=== PATIENT | male | born 1975 | race Caucasian/White ===

== ENCOUNTER 2019-01-29 12:35 | Emergency (ER) | payer SELFPAY ==
--- NOTE | 2019-01-29 13:37 | EDM.PDOC ---
Scribed by Rebecca Bailey 01/29/19 0091 for Kiel Gilmore MD ED HPI GENERAL MEDICAL PROBLEM - General Chief Complaint: Lower Extremity Injury/Pain Stated Complaint: TWISTED ANKLE Time Seen by Provider: 01/29/19 13:15 Source of Information: Reports: Patient, RN, RN Notes Reviewed History Limitations: Reports: No Limitations - History of Present Illness INITIAL COMMENTS - FREE TEXT/NARRATIVE: Patient presents to ER with complaint of right ankle injury. Patient states he was walking down some stairs around 1145 and he misstepped and rolled his ankle. Pt states that he heard it "pop" twice and said it "turned all the way around". Pt denies injury elsewhere. Patient was able to bear weight on it when standing on scale. Patient rates pain at a 5/10 to his ankle. Patient denies pain elsewhere. States he took 800mg of aleve after incident. Patient was given ice during triage. Onset: Today Duration: Constant Location: Reports: Lower Extremity, Right Quality: Reports: Ache Severity: Moderate Improves with: Reports: None Worsens with: Reports: None Associated Symptoms: Reports: No Other Symptoms Ankle Pain Score (Numeric/FACES): 5 - Related Data Allergies Allergy/AdvReac Type Severity Reaction Status Date / Time No Known Allergies Allergy Verified 01/29/19 12:53 Home Meds: Home Meds . [No Known Home Meds] 05/21/18 [History] Past Medical History - Past Health History Medical/Surgical History: Denies Medical/Surgical History Social & Family History - Family History Family Medical History: Noncontributory - Tobacco Use Smoking Status *Q: Current Every Day Smoker Years of Tobacco use: 30 Packs/Tins Daily: 1 - Caffeine Use Caffeine Use: Reports: Coffee - Recreational Drug Use Recreational Drug Use: Yes Recreational Drug Type: Reports: Marijuana/Hashish Review of Systems - Review of Systems Review Of Systems: ROS reveals no pertinent complaints other than HPI. ED EXAM, GENERAL - Physical Exam Exam: See Below Exam Limited By: No Limitations General Appearance: Alert, WD/WN, No Apparent Distress Throat/Mouth: Normal Inspection, Normal Voice Head: Atraumatic, Normocephalic Neck: Normal Inspection Respiratory/Chest: No Respiratory Distress Cardiovascular: Regular Rate, Rhythm Extremities: No Pedal Edema, Normal Capillary Refill, Leg Pain (Rt lateral ankle with soft tissue swelling, no visible deformity, faint bruising. ) Neurological: Alert, Oriented, No Motor/Sensory Deficits Psychiatric: Normal Mood Skin Exam: Warm, Dry, Intact, Normal Color Course - Vital Signs Last Recorded V/S: Last Vital Signs Temp 98 F 01/29/19 12:54 Pulse 80 01/29/19 12:54 Resp 16 01/29/19 12:54 BP 122/73 01/29/19 12:54 Pulse Ox 100 01/29/19 12:54 - Orders/Labs/Meds Orders: Active Orders 24 hr Category Date Time Status Ankle Min 3V Rt [CR] Urgent Exams 01/29/19 12:50 Taken NEWTON Bandage [Elastic Wrap] [OM.PC] Routine Oth 01/29/19 13:32 Ordered DME for Discharge [COMM] Routine Oth 01/29/19 13:32 Ordered - Radiology Interpretation Free Text/Narrative:: Right ankle x-ray: Negative. See rad report. Departure - Departure Time of Disposition: 13:37 Disposition: Home, Self-Care 01 Condition: Good Clinical Impression: Sprain of right ankle Qualifiers: Encounter type: initial encounter Involved ligament of ankle: unspecified ligament Qualified Code(s): S93.401A - Sprain of unspecified ligament of right ankle, initial encounter - Discharge Information *PRESCRIPTION DRUG MONITORING PROGRAM REVIEWED*: Not Applicable *COPY OF PRESCRIPTION DRUG MONITORING REPORT IN PATIENT STEPHAN: Not Applicable Instructions: Ankle Sprain, [id number] Forms: ED Department Discharge Additional Instructions: Elevate the ankle and ice it. Use crutches and Newton wrap as needed for comfort. Use over the counter Tylenol or Ibuprofen as needed for pain. Follow directions on bottle for dosing and precautions. - My Orders Last 24 Hours: My Active Orders 01/29/19 12:50 Ankle Min 3V Rt [CR] Urgent 01/29/19 13:32 NEWTON Bandage [Elastic Wrap] [OM.PC] Routine DME for Discharge [COMM] Routine - Assessment/Plan Last 24 Hours: My Active Orders 01/29/19 12:50 Ankle Min 3V Rt [CR] Urgent 01/29/19 13:32 NEWTON Bandage [Elastic Wrap] [OM.PC] Routine DME for Discharge [COMM] Routine I have read and agree with the documentation that has been completed regarding this visit. By signing this record, I attest that the documentation was completed in my physical presence and is an accurate record of the encounter.
== END 2019-01-29 14:02 | disposition home or self-care (01) ==
LOC: DL.ED 12:35
DX: S93.401A Sprain of unspecified ligament of right ankle, initial encounter (principal); F17.210 Nicotine dependence, cigarettes, uncomplicated; W10.9XXA Fall (on) (from) unspecified stairs and steps, initial encounter
CPT/HCPCS: 73610-RT; 99283-25